=== PATIENT | male | born 2000 | race Caucasian/White ===

== ENCOUNTER 2022-12-19 14:15 | Emergency (ER) | payer OTHER, SELFPAY ==
--- NOTE | ~2022-12-19 | CT_ITS ---
EXAMINATION: CT SOFT TISSUE NECK WITH CONTRAST CLINICAL INFORMATION: Severe sore throat, concern for left sided abscess COMPARISON: None. TECHNIQUE: Following the administration of 60 mL of Omnipaque 350 intravenous contrast, helical imaging was performed in the axial plane with generation of coronal and sagittal reformatted images. This CT examination was performed using dose optimization techniques as appropriate, variously including the following: *Automated exposure control. *Adjustment of mA and/or kV according to patient size (this includes techniques or standardized protocols for targeted exams where dose is matched to indication/reason for exam; i.e. extremities or head). *Use of iterative reconstruction technique. DLP: 376 mGy-cm. FINDINGS: Motion degraded examination. There is enlargement and heterogeneous appearance of the left greater than right palatine tonsils compatible with tonsillitis with an 8 mm region of hypoenhancement within the central left palatine tonsil and 6 mm hypoenhancing region along the periphery of the right palatine tonsil which may reflect early/developing tonsillar/peritonsillar abscesses. There is mild narrowing of the oropharyngeal airway. Prominent reactive multilevel cervical chain lymph nodes. Moderate volume adenoidal tonsillar tissue. Mucosal thickening within the maxillary sinus lobular recesses. The mastoid air cells are well aerated. The temporomandibular joints are normal. The oral cavity is normal. Asymmetric prominence of the right pyriform sinus and asymmetrically prominent right laryngeal vestibule can be correlated clinically for signs of right vocal cord paresis. Asymmetric nonspecific thickening of the left platysma muscle. The submandibular and parotid glands are normal. The thyroid gland is normal. The partially visualized lung apices are clear. Normal enhancement of the cervical vascular structures. There is minimal subchondral cystic change/sclerosis along the C5 anterior upper endplate. The imaged portions of the brain parenchyma are unremarkable. CT/CT soft tissue neck w IV con IMPRESSION: Findings compatible with acute tonsillitis with early/developing tonsillar/peritonsillar abscesses measuring up to 8 mm on the left and 6 mm on the right. Mild oropharyngeal luminal narrowing. Prominent reactive multilevel cervical chain lymph nodes.
--- NOTE | 2022-12-19 14:48 | ED_ITS ---
HPI - General Adult General Chief complaint: Upper Respiratory Symptoms <RAMIRO Mace - Last Filed: 12/19/22 14:54> Stated complaint: Head Ear Throat Pain <RAMIRO Mace Last Filed: 12/19/22 14:54> Time Seen by Provider: 12/19/22 14:54 <RAMIRO Mace - Last Filed: 12/19/22 14:54> Source: patient and family <RAMIRO Waldrop Last Filed: 12/19/22 18:27> Mode of arrival: ambulatory <RAMIRO Waldrop Last Filed: 12/19/22 18:27> Limitations: no limitations <RAMIRO Waldrop Last Filed: 12/19/22 18:27> History of Present Illness HPI narrative: 22yo male presenting for sore throat for 4 days. Patient stated that the pain started in his throat and has progressed to include his ears and head. Patient stated he has been experiencing some difficulty with swallowing but no trouble breathing. No drooling or difficulty handling secretions. Patient denied fever, nausea, vomiting, diarrhea, or rashes. Denied any known sick contacts. <RAMIRO Waldrop - Last Filed: 12/19/22 18:27> MD complaint: sore throat <RAMIRO Waldrop Last Filed: 12/19/22 18:27> Onset (ago): day(s) (4) <RAMIRO Waldrop Last Filed: 12/19/22 18:27> Location: mouth (throat) <RAMIRO Waldrop Last Filed: 12/19/22 18:27> Radiation: other (ears, head) <RAMIRO Waldrop Last Filed: 12/19/22 18:27> Pain Consistency: constant <RAMIRO Waldrop Last Filed: 12/19/22 18:27> Associated symptoms: other (headache, ear pain) <RAMIRO Waldrop Last Filed: 12/19/22 18:27> Treatments prior to arrival: other (OTC throat remedies) <RAMIRO Waldrop Last Filed: 12/19/22 18:27> Related Data Home medications: Previous Rx's Medication Instructions Recorded amoxicillin 875 mg-potassium 1 tab PO BID #20 tabs 12/19/22 clavulanate 125 mg tablet ibuprofen 600 mg tablet 600 mg PO Q8H PRN fever or pain 12/19/22 #14 tabs <RAMIRO Mace - Last Filed: 12/19/22 14:54> Allergies/adverse reactions: Allergies Allergy/AdvReac Type Severity Reaction Status Date / Time No Known Allergies Allergy Unverified 05/20/20 19:36 [No Known Allergies*] <RAMIRO Mace - Last Filed: 12/19/22 14:54> Review of Systems Review of Systems: Yes all other systems are reviewed and are negative <RAMIRO Waldrop - Last Filed: 12/19/22 18:27> COUNT INCLUDES THE [facility] Social History Social History: Social History Advance Directives: No Advance Directives Information Provided: No <RAMIRO Mace - Last Filed: 12/19/22 14:54> Physical Exam ED Vital Signs: Vital Signs - 24 hr 12/19/22 14:49 Temperature 98.8 F Pulse Rate 99 Respiratory Rate 16 Blood Pressure 133/72 Pulse Oximetry 98 Oxygen Delivery Method Room Air BMI result Body Mass Index 23.5 <RAMIRO Mace - Last Filed: 12/19/22 14:54> Vital Signs - 24 hr 12/19/22 14:49 Temperature 98.8 F Pulse Rate 99 Respiratory Rate 16 Blood Pressure 133/72 Pulse Oximetry 98 Oxygen Delivery Method Room Air BMI result Body Mass Index 23.5 <RAMIRO Waldrop - Last Filed: 12/19/22 18:27> Appearance: Alert. Oriented X3. No acute distress. Muffled voice HEENT: PERRL. Nares patent. White patches noted on anterior aspect of tongue. Tonsils swollen bilaterally, erythematous, with exudate. Uvula midline. Tender cervical lymphadenopathy. TMs intact with normal cone of light and no bulging or erythema Neck: bilateral cervical LAD CVS: Normal heart rate and rhythm. Pulses normal. Respiratory: No respiratory distress. Lungs CTAB Skin: Skin warm and dry. Normal skin color. Normal skin turgor. No rashes. Neuro: Oriented X 3. No motor deficit. No sensory deficit. <RAMIRO Waldrop - Last Filed: 12/19/22 18:27> Course Course Course Narrative: This is an RME: Additional HPI, ROS, PE not included below will be deferred to primary provider. This is a 22 y m w/ severe sore throat, b/l ear pain, fatigue, malise, difficulty swallowing X 4 days worsening PE- b/l tonsils w/ errythema, edema and exudate ? L sided abscess Plan- labs, swabs, imaging Below <RAMIRO Mace - Last Filed: 12/19/22 14:54> Medications Administered Discontinued Medications Generic Name Dose Route Start Last Admin Trade Name Freq PRN Reason Stop Dose Admin Dexamethasone Sodium Phosphate 6 mg 12/19/22 15:43 12/19/22 16:41 Dexamethasone Sod Phosphate 4 Mg/Ml Vial IVPUSH 12/19/22 15:44 6 mg ONCE ONE Administration Ceftriaxone Sodium 1 gm/ 50 mls @ 100 mls/hr 12/19/22 15:43 12/19/22 16:41 Sodium Chloride IV 12/19/22 16:12 Infused ONCE ONE Infusion Ibuprofen 600 mg 12/19/22 15:02 12/19/22 15:29 Ibuprofen 600 Mg Tablet PO 12/19/22 15:03 600 mg ONCE ONE Administration Iohexol 100 ml 12/19/22 17:10 12/19/22 17:10 Iohexol 350 Mg/Ml 100 Ml Infus..Btl IV 12/19/22 17:11 60 ml ONCE ONE Administration Lidocaine HCl 15 ml 12/19/22 15:02 12/19/22 15:29 Lidocaine Hcl Viscous 2 % 15 Ml Solution MUCOUS MEM 12/19/22 15:03 15 ml ONCE ONE Administration <RAMIRO Mace - Last Filed: 12/19/22 14:54> Medications Administered Discontinued Medications Generic Name Dose Route Start Last Admin Trade Name Freq PRN Reason Stop Dose Admin Dexamethasone Sodium Phosphate 6 mg 12/19/22 15:43 12/19/22 16:41 Dexamethasone Sod Phosphate 4 Mg/Ml Vial IVPUSH 12/19/22 15:44 6 mg ONCE ONE Administration Ceftriaxone Sodium 1 gm/ 50 mls @ 100 mls/hr 12/19/22 15:43 12/19/22 16:41 Sodium Chloride IV 12/19/22 16:12 Infused ONCE ONE Infusion Ibuprofen 600 mg 12/19/22 15:02 12/19/22 15:29 Ibuprofen 600 Mg Tablet PO 12/19/22 15:03 600 mg ONCE ONE Administration Iohexol 100 ml 12/19/22 17:10 12/19/22 17:10 Iohexol 350 Mg/Ml 100 Ml Infus..Btl IV 12/19/22 17:11 60 ml ONCE ONE Administration Lidocaine HCl 15 ml 12/19/22 15:02 12/19/22 15:29 Lidocaine Hcl Viscous 2 % 15 Ml Solution MUCOUS MEM 12/19/22 15:03 15 ml ONCE ONE Administration <RAMIRO Waldrop - Last Filed: 12/19/22 18:27> Medical Decision Making Medical Decision Making MDM Narrative: 22y male presenting with sore throat associated with ear pain and headache for 4 days. He has a hot potato voice but is handling his secretions well. Airway patent. Labs showed leukocytosis 21.6. Reeves is negative. Strep is negative. Given exam findings IV abx and decadron were given. CT showing early/developing bilateral tonstillar abscesses, measuring 6mm on the right and 8mm on the left. Case d/w Dr. Mcqueen and [facility] was contacted for recommendations - PO abx and outpatient follow up in 2 days. Patient was give Motrin and topical lidocaine with significant improvement of hi s symptoms. Patient was counseled and given strict instructions and return precautions. Stable for d/c home. <RAMIRO Waldrop - Last Filed: 12/19/22 18:27> Differential Diagnosis Differential Diagnoses: The differential diagnosis associated with the presentation includes <RAMIRO Gillis - Last Filed: 12/19/22 18:27> mononucleosis, streptococcal tonsilitis, peritonsillar abscess, hairy leukoplakia, oral candidiasis <RAMIRO Waldrop Last Filed: 12/19/22 18:27> Admission/Observation Consideration of admission/observation: Escalation of care including admission/observation considered <RAMIRO Waldrop Last Filed: 12/19/22 18:27> Consult Healthcare Provider Management of the patient was discussed with: [employer] <RAMIRO Waldrop - Last Filed: 12/19/22 18:27> [facility] <RAMIRO Waldrop - Last Filed: 12/19/22 18:27> Lab Data MDM Lab Attestation statement: I reviewed the patient's lab results. <RAMIRO Waldrop - Last Filed: 12/19/22 18:27> significant leukocytosis <RAMIRO Waldrop - Last Filed: 12/19/22 18:27> Result Diagrams: 12/19/22 15:02 12/19/22 15:02 <RAMIRO Mace - Last Filed: 12/19/22 14:54> Labs: Lab Results 12/19/22 12/19/22 12/19/22 Range/Units 15:00 15:00 15:00 WBC (4.8-10.8) X10*3/uL RBC (4.60-5.80) X10*6/uL Hgb (14.0-18.0) g/dl Hct (42.0-52.0) % MCV (80.0-98.0) fL MCH (27.0-33.0) pg MCHC (31.0-36.0) g/dl RDW (11.0-16.0) % Plt Count (160-400) X10*3/uL MPV (9.4-12.4) fL Immature Gran % (Auto) (0.0-0.4) % Neut % (Auto) (45-73) % Lymph % (Auto) (20-40) % Reeves % (Auto) (2-11) % Eos % (Auto) (0-4) % Baso % (Auto) (0-2) % Lymph # (Auto) (1.2-4.9) X10*3/uL Reeves # (Auto) (0.1-1.2) X10*3/uL Eos # (Auto) (0.0-0.4) X10*3/uL Baso # (Auto) (0.0-0.2) X10*3/uL Abs Immat Gran (auto) (0.00-0.03) X10*3/uL Absolute Neuts (auto) (2.0-8.3) x10*3/uL Absolute Nucleated RBC (0.0-0.012) X10*3/uL Nucleated RBC % (auto) (0.0-0.2) /100WBC Smear Tech's Comments Sodium (135-145) mmol/L Potassium (3.3-5.1) mmol/L Chloride (96-108) mmol/L Carbon Dioxide (22-29) mmol/L Anion Gap (12-20) BUN (9-16) mg/dL Creatinine (0.5-1.4) mg/dL Estim Creat Clear Calc Estimated GFR Random Glucose (60-115) mg/dL Calcium (8.4-10.2) mg/dL Magnesium (1.6-2.6) mg/dL Total Bilirubin (0.0-1.0) mg/dL AST (5-37) U/L ALT (0-40) U/L Alkaline Phosphatase (39-117) U/L Total Protein (6.5-8.0) g/dL Albumin (3.5-5.0) g/dL COVID-19 (ISHMAEL) Negative (Negative) COVID-19 Clin Com See Note Monoscreen (Negative) Influenza Type A (JOHAN) Negative (Negative) Influenza Type B (JOHAN) Negative (Negative) Influenza A & B Note See Note S. pyogenes GrpA JOHAN Negative (Negative) 12/19/22 12/19/22 12/19/22 Range/Units 15:02 15:02 15:02 WBC 21.6 H (4.8-10.8) X10*3/uL RBC 5.33 (4.60-5.80) X10*6/uL Hgb 14.0 (14.0-18.0) g/dl Hct 43.3 (42.0-52.0) % MCV 81.2 (80.0-98.0) fL MCH 26.3 L (27.0-33.0) pg MCHC 32.3 (31.0-36.0) g/dl RDW 12.5 (11.0-16.0) % Plt Count 334 (160-400) X10*3/uL MPV 8.5 L (9.4-12.4) fL Immature Gran % (Auto) 0.4 (0.0-0.4) % Neut % (Auto) 84.2 H (45-73) % Lymph % (Auto) 7.9 L (20-40) % Reeves % (Auto) 7.4 (2-11) % Eos % (Auto) 0.0 (0-4) % Baso % (Auto) 0.1 (0-2) % Lymph # (Auto) 1.7 (1.2-4.9) X10*3/uL Reeves # (Auto) 1.6 H (0.1-1.2) X10*3/uL Eos # (Auto) 0.0 (0.0-0.4) X10*3/uL Baso # (Auto) 0.0 (0.0-0.2) X10*3/uL Abs Immat Gran (auto) 0.09 H (0.00-0.03) X10*3/uL Absolute Neuts (auto) 18.2 H (2.0-8.3) x10*3/uL Absolute Nucleated RBC 0.000 (0.0-0.012) X10*3/uL Nucleated RBC % (auto) 0.0 (0.0-0.2) /100WBC Smear Tech's Comments VERIFIED Sodium 137 (135-145) mmol/L Potassium 4.8 (3.3-5.1) mmol/L Chloride 102 (96-108) mmol/L Carbon Dioxide 22 (22-29) mmol/L Anion Gap 18 (12-20) BUN 9 (9-16) mg/dL Creatinine 0.89 (0.5-1.4) mg/dL Estim Creat Clear Calc 123.7 Estimated GFR > 60 Random Glucose 92 (60-115) mg/dL Calcium 10.1 (8.4-10.2) mg/dL Magnesium 1.9 (1.6-2.6) mg/dL Total Bilirubin 1.2 H (0.0-1.0) mg/dL AST 28 (5-37) U/L ALT 20 (0-40) U/L Alkaline Phosphatase 80 (39-117) U/L Total Protein 8.5 H (6.5-8.0) g/dL Albumin 5.1 H (3.5-5.0) g/dL COVID-19 (ISHMAEL) (Negative) COVID-19 Clin Com Monoscreen Negative (Negative) Influenza Type A (JOHAN) (Negative) Influenza Type B (JOHAN) (Negative) Influenza A & B Note S. pyogenes GrpA JOHAN (Negative) <RAMIRO Mace - Last Filed: 12/19/22 14:54> Lab Results 12/19/22 12/19/22 12/19/22 Range/Units 15:00 15:00 15:00 WBC (4.8-10.8) X10*3/uL RBC (4.60-5.80) X10*6/uL Hgb (14.0-18.0) g/dl Hct (42.0-52.0) % MCV (80.0-98.0) fL MCH (27.0-33.0) pg MCHC (31.0-36.0) g/dl RDW (11.0-16.0) % Plt Count (160-400) X10*3/uL MPV (9.4-12.4) fL Immature Gran % (Auto) (0.0-0.4) % Neut % (Auto) (45-73) % Lymph % (Auto) (20-40) % Reeves % (Auto) (2-11) % Eos % (Auto) (0-4) % Baso % (Auto) (0-2) % Lymph # (Auto) (1.2-4.9) X10*3/uL Reeves # (Auto) (0.1-1.2) X10*3/uL Eos # (Auto) (0.0-0.4) X10*3/uL Baso # (Auto) (0.0-0.2) X10*3/uL Abs Immat Gran (auto) (0.00-0.03) X10*3/uL Absolute Neuts (auto) (2.0-8.3) x10*3/uL Absolute Nucleated RBC (0.0-0.012) X10*3/uL Nucleated RBC % (auto) (0.0-0.2) /100WBC Smear Tech's Comments Sodium (135-145) mmol/L Potassium (3.3-5.1) mmol/L Chloride (96-108) mmol/L Carbon Dioxide (22-29) mmol/L Anion Gap (12-20) BUN (9-16) mg/dL Creatinine (0.5-1.4) mg/dL Estim Creat Clear Calc Estimated GFR Random Glucose (60-115) mg/dL Calcium (8.4-10.2) mg/dL Magnesium (1.6-2.6) mg/dL Total Bilirubin (0.0-1.0) mg/dL AST (5-37) U/L ALT (0-40) U/L Alkaline Phosphatase (39-117) U/L Total Protein (6.5-8.0) g/dL Albumin (3.5-5.0) g/dL COVID-19 (ISHMAEL) Negative (Negative) COVID-19 Clin Com See Note Monoscreen (Negative) Influenza Type A (JOHAN) Negative (Negative) Influenza Type B (JOHAN) Negative (Negative) Influenza A & B Note See Note S. pyogenes GrpA JOHAN Negative (Negative) 12/19/22 12/19/22 12/19/22 Range/Units 15:02 15:02 15:02 WBC 21.6 H (4.8-10.8) X10*3/uL RBC 5.33 (4.60-5.80) X10*6/uL Hgb 14.0 (14.0-18.0) g/dl Hct 43.3 (42.0-52.0) % MCV 81.2 (80.0-98.0) fL MCH 26.3 L (27.0-33.0) pg MCHC 32.3 (31.0-36.0) g/dl RDW 12.5 (11.0-16.0) % Plt Count 334 (160-400) X10*3/uL MPV 8.5 L (9.4-12.4) fL Immature Gran % (Auto) 0.4 (0.0-0.4) % Neut % (Auto) 84.2 H (45-73) % Lymph % (Auto) 7.9 L (20-40) % Reeves % (Auto) 7.4 (2-11) % Eos % (Auto) 0.0 (0-4) % Baso % (Auto) 0.1 (0-2) % Lymph # (Auto) 1.7 (1.2-4.9) X10*3/uL Reeves # (Auto) 1.6 H (0.1-1.2) X10*3/uL Eos # (Auto) 0.0 (0.0-0.4) X10*3/uL Baso # (Auto) 0.0 (0.0-0.2) X10*3/uL Abs Immat Gran (auto) 0.09 H (0.00-0.03) X10*3/uL Absolute Neuts (auto) 18.2 H (2.0-8.3) x10*3/uL Absolute Nucleated RBC 0.000 (0.0-0.012) X10*3/uL Nucleated RBC % (auto) 0.0 (0.0-0.2) /100WBC Smear Tech's Comments VERIFIED Sodium 137 (135-145) mmol/L Potassium 4.8 (3.3-5.1) mmol/L Chloride 102 (96-108) mmol/L Carbon Dioxide 22 (22-29) mmol/L Anion Gap 18 (12-20) BUN 9 (9-16) mg/dL Creatinine 0.89 (0.5-1.4) mg/dL Estim Creat Clear Calc 123.7 Estimated GFR > 60 Random Glucose 92 (60-115) mg/dL Calcium 10.1 (8.4-10.2) mg/dL Magnesium 1.9 (1.6-2.6) mg/dL Total Bilirubin 1.2 H (0.0-1.0) mg/dL AST 28 (5-37) U/L ALT 20 (0-40) U/L Alkaline Phosphatase 80 (39-117) U/L Total Protein 8.5 H (6.5-8.0) g/dL Albumin 5.1 H (3.5-5.0) g/dL COVID-19 (ISHMAEL) (Negative) COVID-19 Clin Com Monoscreen Negative (Negative) Influenza Type A (JOHAN) (Negative) Influenza Type B (JOHAN) (Negative) Influenza A & B Note S. pyogenes GrpA JOHAN (Negative) <RAMIRO Waldrop - Last Filed: 12/19/22 18:27> Independent Interpretation I performed an independent interpretation of an: CT Scan <RAMIRO Waldrop - Last Filed: 12/19/22 18:27> Interpretation: significant tonsillar swelling, agree w/ radiologist read <RAMIRO Waldrop - Last Filed: 12/19/22 18:27> Radiology Impression Discussion of test interpretation with radiology: I have reviewed the radiologist's reading. <RAMIRO Waldrop - Last Filed: 12/19/22 18:27> Radiologist Impression: CT/CT soft tissue neck w IV con IMPRESSION: ? Findings compatible with acute tonsillitis with early/developing tonsillar/peritonsillar abscesses measuring up to 8 mm on the left and 6 mm on the right. Mild oropharyngeal luminal narrowing. Prominent reactive multilevel cervical chain lymph nodes. <RAMIRO Waldrop - Last Filed: 12/19/22 18:27> Independent Historian Clinical information obtained from an independent historian. History obtained from or confirmed by: Parent <RAMIRO Waldrop - Last Filed: 12/19/22 18:27> Prescription Management I considered prescription management with: Pain Medication and Antibiotic <RAMIRO Waldrop - Last Filed: 12/19/22 18:27> Critical Care Time Critical Care Time Critical Care Time: Yes <RAMIRO Waldrop - Last Filed: 12/19/22 18:27> Total Critical Care Time: 35 <RAMIRO Waldrop - Last Filed: 12/19/22 18:27> Attestation: I have personally provided critical care time exclusive of time spent on separately billable procedures. Time includes review of lab data, radiology results, discussion with consultants, and monitoring for potential decompensation. Intervention performed as documented. <RAMIRO Waldrop - Last Filed: 12/19/22 18:27> Discharge Plan Discharge Clinical Impression: Acute tonsillitis <RAMIRO Mace Last Filed: 12/19/22 14:54> Patient Disposition: Home, Self-Care <RAMIRO Mace Last Filed: 12/19/22 14:54> Instructions: Tonsillitis (ED) <RAMIRO Mace - Last Filed: 12/19/22 14:54> Additional Instructions: Your CT scan showed significant swelling of your tonsils. You may have early or developing abscesses. [facility] ENT provider Dr. De La Rosa would like to see you in her office in 2 days. Call [phone] to make an appointment - she is aware of your case, tell them you were in the ER and need close outpatient follow up Use warm salt water gargles 4 times per day Use over the counter Chloraseptic spray as needed for pain. If you develop new or worsening symptoms call 911 or come back to the ER for further evaluation. <RAMIRO Mace - Last Filed: 12/19/22 14:54> Prescriptions: New amoxicillin-pot clavulanate 875-125 mg tablet 1 tab PO BID Qty: 20 0RF ibuprofen 600 mg tablet 600 mg PO Q8H PRN (Reason: fever or pain) Qty: 14 0RF <RAMIRO Mace - Last Filed: 12/19/22 14:54>
[2022-12-19 14:49] VITALS: BP 133/72; PULSE 99; RESP 16; TEMP 37.1; O2SAT 98; BMI 23.5
[2022-12-19 15:13] LABS: Basophils Percent Auto 0.1 % (0-2); Hematocrit 43.3 % (42.0-52.0); Imm Gran Abs Auto 0.09 X10*3/uL (0.00-0.03); Imm Gran Pct Auto 0.4 % (0.0-0.4); Lymphocytes Absolute Auto 1.7 X10*3/uL (1.2-4.9); Lymphocytes Percent Auto 7.9 % (20-40); MANUAL DIFF FLAG SCAN; Mean Corpuscular HGB Conc 32.3 g/dl (31.0-36.0); Mean Corpuscular Hemoglobin 26.3 pg (27.0-33.0); Mean Corpuscular Volume 81.2 fL (80.0-98.0); Mean Platelet Volume 8.5 fL (9.4-12.4); Monocytes Absolute Auto 1.6 X10*3/uL (0.1-1.2); Monocytes Percent Auto 7.4 % (2-11); Neutrophils Absolute Auto 18.2 x10*3/uL (2.0-8.3); Neutrophils Percent Auto 84.2 % (45-73); Platelet Count 334 X10*3/uL (160-400); Red Blood Count 5.33 X10*6/uL (4.60-5.80); Red Cell Distribution Width 12.5 % (11.0-16.0); SCAN SMEAR FLAG 1; White Blood Count 21.6 X10*3/uL (4.8-10.8)
[2022-12-19 15:26] LABS: Alanine Aminotransferase 20 U/L (0-40); Albumin Level 5.1 g/dL (3.5-5.0); Alkaline Phosphatase 80 U/L (39-117); Anion Gap 18 (12-20); Aspartate Amino Transferase 28 U/L (5-37); Bilirubin Total 1.2 mg/dL (0.0-1.0); Blood Urea Nitrogen 9 mg/dL (9-16); Calcium 10.1 mg/dL (8.4-10.2); Carbon Dioxide 22 mmol/L (22-29); Chloride 102 mmol/L (96-108); Creatinine Clr Calc Pharmacy 123.7; Estimated Glomerular Filt Rate > 60; Glucose Random 92 mg/dL (60-115); Magnesium 1.9 mg/dL (1.6-2.6); Potassium 4.8 mmol/L (3.3-5.1); Sodium 137 mmol/L (135-145); Total Protein 8.5 g/dL (6.5-8.0)
[2022-12-19 15:28] LABS: COVID-19 Test Negative (Negative); IDNOW Serial# 6674DD1D; IDNOW Serial# BCCEAD1C; Strep A Nucleic Acid Negative (Negative)
[2022-12-19 15:29] LABS: IDNOW Serial# 55D5AD1C; Influenza A Negative (Negative); Influenza B2 Negative (Negative)
[2022-12-19] MEDS: Ibuprofen 600 MG TABLET PO (15:29)
[2022-12-19] MEDS: Lidocaine HCl Viscous 2 % 15 ML SOLUTION MUCOUS MEM (15:29)
--- NOTE | 2022-12-19 15:35 | PC.NURSE ---
pt medicated per NOV for 06/12 throat pain
[2022-12-19 15:41] LABS: SLIDE REVIEW VERIFIED
[2022-12-19 15:42] LABS: Monotest Negative (Negative)
[2022-12-19] MEDS: cefTRIAXone sodium 1 GM in 0.9 % Sodium Chloride 50 ML IV (15:56)
--- NOTE | 2022-12-19 16:09 | PC.NURSE ---
pt medicated with antibiotic per ED - rocephin 1gm infusing- pt will receive decadron
[2022-12-19] MEDS: dexAMETHasone sod phosphate 4 MG/ML VIAL 6 MG IVPUSH (16:41)
--- NOTE | 2022-12-19 16:45 | PC.NURSE ---
pt medicated per provider order, pt reporting that he is feeling a little better, reduction in pain to 5/10. resting quietly, pending CT scan.
[2022-12-19] MEDS: iohexoL 350 MG/ML 100 ML INFUS..BTL IV (17:10)
== END 2022-12-19 18:40 | disposition home or self-care (01) ==
PROVIDERS: Physician Assistant; Emergency Provider Emergency Medicine; PCP Pediatrics
DX: J03.90 Acute tonsillitis, unspecified (principal); Z20.822 Contact with and (suspected) exposure to COVID-19
CPT/HCPCS: 70491; 80053; 83735; 85025; 86308; 87502; 87635; 87651; 96365; 96375; 99283; 99284; J0696; J1100; Q9967